=== PATIENT | female | born 1960 | race Caucasian/White ===

== ENCOUNTER 2019-02-07 12:34 | Inpatient (IN) | payer OTHER ==
[~2019-02-07] VITALS: Ht 149.9 cm; Wt 90.7 kg
[~2019-02-07 12:34] MED LIST: ASPI-1718 PO; FLO110 INH; FURO-572 PO; LISI-420 PO; MONT10TA35 PO; SYN.1 PO
[2019-02-07 12:48] VITALS: BP 162/96
--- NOTE | 2019-02-07 13:06 | NUR ---
PT W/C ASSISTED TO BED 3 AT THIS TIME.
--- NOTE | 2019-02-07 13:30 | NUR ---
C/O NON RADIATING LOWER ABD PAIN AROUND [place] 7/10 AND SHARP X4 DAYS ACCOMPANIED BY NAUSEA AND CONSTIPATION. PT STATES SHE WAS SEEN BY HER PCP DR. REESE WEDNESDAY AND WAS TOLD SHE HAS AN UMBILICAL HERNIA, AND ADVISED IF THE PAIN GETS WORSE TO COME TO THE ER. ABD IS ROUND/PUFFY AND TENDER TO PALPATION AROUND UMBILICAL AREA. LBM 02/06/19, CONSTIPATION PER PT. PT STATES "I'M AFRAID TO GO BECAUSE IT HURTS". DENIES VOMITING/FEVER/DYSURIA/DIARRHEA. BED IN LOW POSITION, SIDE RAIL UP X1
--- NOTE | 2019-02-07 13:35 | NUR ---
ERMD AT BEDSIDE
[2019-02-07] MEDS ORDERED: ALBUTEROL 0.083% 2.5 MG/3 ML NEBU INH ONE (14:05)
[2019-02-07] MEDS ORDERED: MORPHINE SULFATE 2 MG/ML SYR IVP ONE (14:05)
[2019-02-07] MEDS ORDERED: IPRATROPIUM 0.02% 0.5 MG/2.5 ML NEBU INH ONE (14:05)
[2019-02-07] MEDS ORDERED: ONDANSETRON 4 MG/2 ML VIAL IVP ONE (14:05)
[2019-02-07] MEDS ORDERED: NACL 0.9% 500 ML IV ONE (14:05)
[2019-02-07 14:23] LABS: BASOPHILS % (AUTO) 0.5 % (0.0-2.0); EOSINOPHILS # (AUTO) 0.4 K/uL (0-0.4); EOSINOPHILS % (AUTO) 7.2 % (0.0-4.0); HEMATOCRIT 29.7 % (36-48); HEMOGLOBIN 9.3 g/dL (12.0-16.0); LYMPHOCYTES # (AUTO) 1.3 K/uL (2.5-16.5); LYMPHOCYTES % (AUTO) 20.9 % (20.5-51.1); MEAN CORPUSCULAR HEMOGLOBIN 29 pg (27-31); MEAN CORPUSCULAR HGB CONC 31 g/dL (33-37); MEAN CORPUSCULAR VOLUME 92.1 fL (80-94); MONOCYTES # (AUTO) 0.5 K/uL (0.8-1.0); MONOCYTES % (AUTO) 7.6 % (1.7-9.3); NEUTROPHILS % (AUTO) 63.8 % (42.2-75.2); PLATELET COUNT (AUTO) 362 K/uL (140-450); RED BLOOD CELL COUNT(AUTO) 3.22 MIL/uL (4.20-5.40); RED CELL DISTRIBUTION WIDTH 15.2 % (11.6-13.7); WHITE BLOOD COUNT (AUTO) 6.2 K/uL (4.8-10.8)
--- NOTE | 2019-02-07 15:12 | NUR ---
PT TAKEN TO CT VIA W/C.
[2019-02-07 15:19] LABS: ALBUMIN 3.2 g/dL (3.4-5.0); CARBON DIOXIDE 39.1 mmol/L (21-32); CREATININE 1.1 mg/dL (0.6-1.3); POTASSIUM 4.1 mmol/L (3.5-5.1); TOTAL BILIRUBIN 0.2 mg/dL (0.0-1.0)
--- NOTE | 2019-02-07 15:23 | NUR ---
Patient is back from CT and placed in bed 3.
[2019-02-07 15:40] LABS: APPEARANCE,URINE CLOUDY (CLEAR); BILIRUBIN,URINE NEGATIVE (NEGATIVE); BLOOD, URINE 3+ (NEGATIVE); COLOR,URINE YELLOW (YELLOW); LEUKOCYTE ESTERASE ,URINE TRACE (NEGATIVE); NITRITE, URINE NEGATIVE (NEGATIVE); PH,URINE 7.5 (5.0-9.0); UGLUCOSE NEGATIVE (NEGATIVE)
[2019-02-07 15:51] LABS: RBC,URINE TOO NUMEROUS TO COUN /HPF (0-5)
--- NOTE | 2019-02-07 16:59 | NUR ---
PT RESTING IN BED WATCHING VIDEOS ON PHONE, GIRLFRIEND AT BEDSIDE
[2019-02-07] MEDS ORDERED: SODIUM PHOSPHATE 118 ML ENEM RC PRN (17:45)
[2019-02-07] MEDS ORDERED: ALUMINUM HYD/MAG/SIMETHICONE 30 ML UDC PO PRN (17:45)
[2019-02-07] MEDS ORDERED: ONDANSETRON 4 MG/2 ML VIAL IVP PRN (17:45)
[2019-02-07] MEDS ORDERED: ALBUTEROL 0.083% 2.5 MG/3 ML NEBU INH PRN (17:45)
[2019-02-07] MEDS ORDERED: DOCUSATE SODIUM 250 MG GELCAP PO PRN (17:45)
[2019-02-07] MEDS ORDERED: MAGNESIUM OXIDE 400 MG TAB PO PRN (17:45)
[2019-02-07] MEDS ORDERED: POTASSIUM CHLORIDE 10 MEQ TABER PO PRN (17:45)
[2019-02-07] MEDS ORDERED: ACETAMINOPHEN 650 MG SUPP RC PRN (17:45)
[2019-02-07] MEDS ORDERED: LORazepam 2 MG/ML VIAL IVP PRN (17:45)
[2019-02-07] MEDS ORDERED: cloNIDine 0.1 MG TAB PO PRN (17:45)
[2019-02-07] MEDS ORDERED: ACETAMINOPHEN 325 MG TAB PO PRN (17:45)
[2019-02-07] MEDS ORDERED: IPRATROPIUM 0.02% 0.5 MG/2.5 ML NEBU INH PRN (17:45)
[2019-02-07] MEDS ORDERED: diphenhydrAMINE 50 MG/ML VIAL IVP PRN (17:45)
[2019-02-07] MEDS ORDERED: ZOLPIDEM 5 MG TAB PO PRN (17:45)
[2019-02-07] MEDS ORDERED: BISACODYL 10 MG SUPP RC PRN (17:45)
[2019-02-07] MEDS ORDERED: guaiFENesin DM 200/20 MG-10 ML 10 ML UDC PO PRN (17:45)
[2019-02-07] MEDS ORDERED: POTASSIUM CHLORIDE 40 MEQ, LIDOCAINE 1% 25 MG in NACL 0.9% 250 ML IV PRN (17:45)
[2019-02-07] MEDS ORDERED: MAG SULF 2000 MG/WATER PREMIX 50 ML IV PRN (17:45)
[2019-02-07 18:20] VITALS: BP 132/70
--- NOTE | 2019-02-07 18:20 | NUR ---
RECEIVED REPORT FROM NATHANIEL RAMON. PT AAOX4. AMBULATED FROM [facility] TO [facility] BED WITH STANDBY ASSISTANCE. PT HAS HX OF HTN, HR 62, BP 132/70. IV ON RT HAND 22 GA ON SALINE LOCK. RESPIRATIONS EVEN AND UNLABORED ON O2 2L VIA N/C. LBM 02/06, ACTIVE BS, SOFT ABD. SKIN IS INTACT, WARM TO TOUCH. EXPLAINED POC WITH PT, PT VERBALIZED UNDERSTANDING.
--- NOTE | 2019-02-07 18:20 | NUR ---
Patient will be admitted to care of DR. MEDLEY. Admited to MED SURG. Will go to room 119-A. Belongings list completed. Report to NATHANIEL RONQUILLO.
[2019-02-07] MEDS: DEXT 5% / NACL 0.45% 1,000 ML IV SCH (18:31)
--- NOTE | 2019-02-07 19:20 | NUR ---
ENDORSED PT TO SUPPLIES PACKER NURSE. PT HAS NO SIGNS OF DISTRESS AT THIS TIME.
--- NOTE | 2019-02-07 19:30 | NUR ---
ADMITTED 58 YEARS OLD FEMALE FROM ER IN UNIT AT 1830. CC: ABDOMINAL PAIN. DX: DIVERTICULITIS AND UMBILICAL HERNIA. SEE NURSING ADMISSION ASSESSMENT AND HISTORY. ORIENTED TO ROOM AND UNIT ROUTINES. PLAN OF CARE DISCUSSED WITH PATIENT, VERBALIZED UNDERSTANDING WELL. CALL LIGHT WITHIN REACH. CARE BOARD STARTED.
--- NOTE | 2019-02-07 21:00 | NUR ---
ADVISED PATIENT NPO AFTERMIDNIGHT, VERBALIZED UNDERSTANDING WELL. FAMILY AT BEDSIDE, BOUGHT FOOD. NO COMPLAINS. CALL LIGHT WITHIN REACH.
[2019-02-07] MEDS ORDERED: MORPHINE SULFATE 4 MG/ML SYR IVP PRN (21:25)
[2019-02-08] VITALS (7 sets, daily range): BP systolic 103–155; BP diastolic 53–94
--- NOTE | 2019-02-08 | NUR ---
NPO NOW FOR SURGERY IN AM. VITAL SIGNS STABLE. NO COMPLAINS. CALL LIGHT WITHIN REACH.
--- NOTE | 2019-02-08 02:00 | NUR ---
ASLEEP. NO COMPLAINS. CALL LIGHT WITHIN REACH.
[2019-02-08] MEDS: MORPHINE SULFATE 2 MG/ML SYR IVP PRN ×2 (04:51→14:21)
--- NOTE | 2019-02-08 05:40 | NUR ---
IV INFILTRATED. NEW IV SITE INSERTED, LEFT HAND #20, TOLERATED WELL. CALL LIGHT WITHIN REACH.
[2019-02-08] MEDS: DEXT 5% / NACL 0.45% 1,000 ML IV SCH ×2 (06:30→17:22)
[2019-02-08 06:34] LABS: BASOPHILS % (AUTO) 0.4 % (0.0-2.0); EOSINOPHILS # (AUTO) 0.4 K/uL (0-0.4); EOSINOPHILS % (AUTO) 7.3 % (0.0-4.0); HEMATOCRIT 27.7 % (36-48); HEMOGLOBIN 8.6 g/dL (12.0-16.0); LYMPHOCYTES # (AUTO) 1.3 K/uL (2.5-16.5); LYMPHOCYTES % (AUTO) 20.8 % (20.5-51.1); MEAN CORPUSCULAR HEMOGLOBIN 29 pg (27-31); MEAN CORPUSCULAR HGB CONC 31 g/dL (33-37); MEAN CORPUSCULAR VOLUME 93.3 fL (80-94); MONOCYTES # (AUTO) 0.5 K/uL (0.8-1.0); MONOCYTES % (AUTO) 8.1 % (1.7-9.3); NEUTROPHILS # (AUTO) 3.9 K/uL (1.8-7.7); NEUTROPHILS % (AUTO) 63.4 % (42.2-75.2); PLATELET COUNT (AUTO) 360 K/uL (140-450); RED BLOOD CELL COUNT(AUTO) 2.97 MIL/uL (4.20-5.40); RED CELL DISTRIBUTION WIDTH 15.1 % (11.6-13.7); WHITE BLOOD COUNT (AUTO) 6.1 K/uL (4.8-10.8)
--- NOTE | 2019-02-08 07:24 | NUR ---
ENDORSED CARE AT BEDSIDE WITH BRIT ARMSTRONG, PATIENT IN STABLE CONDITION.
--- NOTE | 2019-02-08 07:36 | NUR ---
RECEIVED REPORT FROM JEWELRY BEARING MAKER RN. PT IS AAOX4. AMBULATORY WITH STANDBY ASSISTANCE. IV ON LEFT HAND 20G INFUSING D51/2NS AT 85ML/HR. RESPIRATIONS EVEN AND UNLABORED ON O2 2L VIA N/C. LBM 02/06, ACTIVE BS, SOFT NON-TENDER ABD. SKIN IS INTACT, WARM TO TOUCH. EXPLAINED POC WITH PT, PT VERBALIZED UNDERSTANDING. BED IN LOW POSITION, CALL LIGHT WITHIN REACH. WILL ROUND FREQUENTLY ON PT.
[2019-02-08 08:17] LABS: ALBUMIN 2.9 g/dL (3.4-5.0); ANION GAP 7.8 (8-16); CARBON DIOXIDE 37.1 mmol/L (21-32); CREATININE 1.1 mg/dL (0.6-1.3); POTASSIUM 3.9 mmol/L (3.5-5.1); TOTAL BILIRUBIN 0.2 mg/dL (0.0-1.0)
--- NOTE | 2019-02-08 08:21 | NUR ---
PATIENT HAS BEEN SCREENED AND CATEGORIZED MODERATE NUTRITION RISK. PATIENT WILL BE SEEN WITHIN 3-5 DAYS OF ADMISSION. 02/11/[address]
--- NOTE | 2019-02-08 09:24 | NUR ---
PT RESTING IN BED. ALL NEEDS MET. WILL CONTINUE TO ROUND FREQUENTLY ON PT.
--- NOTE | 2019-02-08 11:34 | NUR ---
PT RESTING IN BED WITH GIRLFRIEND AT BEDSIDE. ALL NEEDS MET. WILL CONTINUE TO ROUND FREQUENTLY ON PT.
--- NOTE | 2019-02-08 11:56 | NUR ---
CONTACTED PATIENT'S PCP DR MICHELE REESE AT [phone], ABLE TO SPEAK TO VERONICA. SHE PROVIDED ME WITH FEB 15 AT 2PM. COPY OF APPOINTMENT PROVIDED TO THE PATIENT.
--- NOTE | 2019-02-08 13:47 | NUR ---
PT RESTING IN BED. ALL NEEDS CURRENTLY MET. PT ABLE TO REPOSITION HERSELF. WILL CONTINUE TO ROUND FREQUENTLY ON PT.
--- NOTE | 2019-02-08 14:32 | NUR ---
PT GIVEN PAIN MEDS FOR 6/10 PAIN. WILL REASSESS FOR MED EFFECTIVENESS. ALL OTHER NEEDS MET. WILL CONTINUE TO ROUND CLOSELY ON PT.
--- NOTE | 2019-02-08 15:42 | NUR ---
PT RESTING IN BED WITH FAMILY AT BEDSIDE. WILL [id number] TO ROUND ON PT.
--- NOTE | 2019-02-08 17:46 | NUR ---
PT RESTING IN BED AWAITING HERNIA REPAIR. PT AWARE THAT ONE PT IS AHEAD OF HER. ALL NEEDS MET. WILL CONTINUE TO ROUND FREQUENTLY ON P.
--- NOTE | 2019-02-08 18:48 | NUR ---
PT TAKEN TO OR. PT LEFT IN STABLE CONDITION.
[2019-02-08] MEDS ORDERED: NEOSTIGMINE 1:1000 10 MG/10 ML VIAL ONE (19:30)
[2019-02-08] MEDS ORDERED: ROCURONIUM 50 MG/5 ML VIAL IV ONE (19:30)
[2019-02-08] MEDS ORDERED: PROPOFOL 200 MG/20 ML VIAL IV ONE (19:30)
[2019-02-08] MEDS ORDERED: SEVOFLURANE 250 ML BTL INH ONE (19:30)
[2019-02-08] MEDS ORDERED: GLYCOPYRROLATE 0.2 MG/ML VIAL ONE (19:30)
[2019-02-08] MEDS ORDERED: SUCCINYLCHOLINE CHLORIDE 200 MG/10 ML VIAL IVP ONE (19:30)
--- NOTE | 2019-02-08 19:30 | NUR ---
RECEIVED REPORT FROM SASHA RN . PT. AT THIS TIME NOT ON THE FLOOR BUT IN OR FOR HERNIA REPAIR.
[2019-02-08] MEDS ORDERED: MEPERIDINE 25 MG/ML SYR IVP PRN (19:40)
[2019-02-08] MEDS ORDERED: HYDROmorphone 1 MG/ML AMP IVP PRN (19:40)
[2019-02-08] MEDS ORDERED: diphenhydrAMINE 50 MG/ML VIAL IVP PRN (19:40)
[2019-02-08] MEDS ORDERED: ONDANSETRON 4 MG/2 ML VIAL IVP PRN (19:40)
[2019-02-08] MEDS: LACTATED RINGERS 1,000 ML IV SCH (19:40)
[2019-02-08] MEDS ORDERED: ceFAZolin 1,000 MG VIAL ONE (19:45)
[2019-02-08] MEDS ORDERED: BUPIVACAINE-MPF/EPI 0.25% 30 ML VIAL INJ ONE (19:45)
[2019-02-08] MEDS ORDERED: fentaNYL 0.05 MG/ML VIAL ONE (19:52)
[2019-02-08] MEDS ORDERED: MIDAZOLAM 2 MG/2 ML VIAL ONE (19:52)
[2019-02-08] MEDS ORDERED: MEPERIDINE 50 MG/ML SYR ONE (19:52)
--- NOTE | 2019-02-08 19:52 | NUR ---
ENDORSED PT TO VICE PRESIDENT & GENERAL MANAGER [employer] [place] FOR CONTINUITY OF CARE. PT IN STABLE CONDITION AT THIS TIME. Addendum: 02/08/19 at 4 by Laquita Todd RN PT IN OR AT THIS TIME
--- NOTE | 2019-02-08 20:16 | NUR ---
PATIENT IN OR AT THIS TIME.
--- NOTE | 2019-02-08 21:39 | NUR ---
PT. AT THIS TIME NOT IN HERE YET. FAMILY MEMBER WAITING IN ROOM.
[2019-02-08] MEDS ORDERED: HYDROmorphone PFS 2 MG/ML SYR ONE (21:49)
--- NOTE | 2019-02-08 22:05 | NUR ---
PT. IN HERE TRANSPORTED VIA GURNEY FROM OR AWAKE AND ABLE TO ANSWER SIMPLE QUESTION. DAUGHTER AT BEDSIDE. VITAL SIGNS AT THIS TIME 138/73,56 PULSE AND O2 SAT AT 94 % WITH 4 LPM/MASK. PT. SLEEPY. DILAUDID IVP ADMINISTERED BY OR NURSE AT 2135. ENCOURAGED TO DEEP BREATH WHEN AWAKE. NO BLEEDING TO DRESSING IN PLACE. S/P REPAIR UMBILICAL HERNIA WITH MESH. NO COMPLAINTS AT THIS TIME.
--- NOTE | 2019-02-08 22:15 | NUR ---
PT. AT THIS TIME WITH HOB UP 30 DEGREES ORDERED.
--- NOTE | 2019-02-08 23:04 | NUR ---
PT. AT THIS TIME AWAKE AND VERBALIZING WELL. REQUESTED TO CHANGE 02 PER MASK TO NASAL CANNULA. PLACED 02 AT 3LPM/NC AT THIS TIME REQUESTED BY DAUGHTER AND PT. 02 SAT 93 %.
--- NOTE | 2019-02-09 00:36 | NUR ---
PT. BEEN SLEEPING AND DAUGHTER AT BEDSIDE. PLACED BACK ON MASK 4LPM/RT PT. DE-SATING TO LESS THAN 90 WHILE SLEEPING. LATEST BP NOW 119/62 WITH 02 SAT OF 94 % . ENCOURAGED DAUGHTER TO LET ME KNOW IF SHE DE-SAT LESS THAN 92. "OK"
[2019-02-09 01:05] VITALS: BP 119/62
--- NOTE | 2019-02-09 03:30 | NUR ---
SLEEPING WELL . NO RESTLESSNESS. VITAL SIGNS WITH IN NORMAL LIMITS AND O2 SAT RANGING FROM 92 TO 96 % WITH 02 AT 4LPM/MASK. DAUGHTER LEFT EARLIER FOR HOME. IVF SITE INTACT AND NO INFILTRATION.
[2019-02-09 04:00] VITALS: BP 130/71
[2019-02-09] MEDS: LACTATED RINGERS 1,000 ML IV SCH ×2 (04:00→11:13)
[2019-02-09] MEDS: DEXT 5% / NACL 0.45% 1,000 ML IV SCH ×2 (05:08→09:00)
--- NOTE | 2019-02-09 05:42 | NUR ---
PT. AM PERSONAL HYGIENE RENDERED. NO COMPLAINTS DONE. VITAL SIGNS AT THIS TIME WNL. 02 SAT AT 94 % ON 02 AT 4LPM/MASK. SBP 130/71. SLEEPING. NO RESTLESSNESS NOTED. NO COMPLAINTS DONE. NO NOTED BLEEDING TO SURGICAL SITE/HERNIA REPAIR UMBILICAL.
[2019-02-09 06:33] LABS: BASOPHILS % (AUTO) 0.3 % (0.0-2.0); EOSINOPHILS # (AUTO) 0.2 K/uL (0-0.4); EOSINOPHILS % (AUTO) 2.9 % (0.0-4.0); HEMATOCRIT 26.5 % (36-48); HEMOGLOBIN 8.5 g/dL (12.0-16.0); LYMPHOCYTES # (AUTO) 1.3 K/uL (2.5-16.5); LYMPHOCYTES % (AUTO) 18.4 % (20.5-51.1); MEAN CORPUSCULAR HEMOGLOBIN 29 pg (27-31); MEAN CORPUSCULAR HGB CONC 32 g/dL (33-37); MEAN CORPUSCULAR VOLUME 91.6 fL (80-94); MONOCYTES # (AUTO) 0.5 K/uL (0.8-1.0); MONOCYTES % (AUTO) 6.9 % (1.7-9.3); NEUTROPHILS # (AUTO) 5.2 K/uL (1.8-7.7); NEUTROPHILS % (AUTO) 71.5 % (42.2-75.2); PLATELET COUNT (AUTO) 364 K/uL (140-450); RED CELL DISTRIBUTION WIDTH 15.1 % (11.6-13.7); WHITE BLOOD COUNT (AUTO) 7.3 K/uL (4.8-10.8)
--- NOTE | 2019-02-09 06:39 | NUR ---
PT. ABLE TO WALK TO RESTROOM TO URINATE WITH STANDBY ASSIST BY OCCUPATIONAL THERAPY ASSISTANT. NO COMPLAINTS DONE. CALL LIGHT WITH IN REACH.
[2019-02-09 06:58] LABS: ALBUMIN 2.8 g/dL (3.4-5.0); ANION GAP 6.6 (8-16); CARBON DIOXIDE 35.5 mmol/L (21-32); POTASSIUM 4.1 mmol/L (3.5-5.1); TOTAL BILIRUBIN 0.3 mg/dL (0.0-1.0)
--- NOTE | 2019-02-09 07:26 | NUR ---
ENDORSED TO THE NEXT RN FOR CONTINUITY OF CARE. WAKES UP WHEN CALLED BY NAME OR TOUCHED. NO COMPLAINTS DONE.
--- NOTE | 2019-02-09 07:27 | NUR ---
RECEIVED ENDORSEMENT FROM GASTROENTEROLOGY PROFESSOR NURSE. PATIENT IS AAOX4, [place] SPEAKING. RESPIRATIONS ARE EVEN AND UNLABORED ON 4L SIMPLE FACE MASK. PATIENT DENIES ANY PAIN AT THIS TIME. LEFT HAND 20G IV INTACT, PATENT, AND INFUSING IVF. PLAN OF CARE WAS REVIEWED WITH PATIENT, PATIENT VERBALIZED UNDERSTANDING. SAFETY MEASURES IN PLACE, CALL LIGHT WITHIN REACH.
[2019-02-09 08:00] VITALS: BP 168/85
--- NOTE | 2019-02-09 09:00 | NUR ---
ADMINISTERED CLONIDINE PRN FOR BP 168/85 P 64. PATIENT TOLERATED WELL. NO OTHER NEEDS AT THIS TIME, WILL CONTINUE TO MONITOR.
[2019-02-09] MEDS: MORPHINE SULFATE 2 MG/ML SYR IVP PRN (10:42)
--- NOTE | 2019-02-09 11:05 | NUR ---
ASSISTED PATIENT TO RESTROOM. PATIENT AMBULATED WITH STEADY GAIT. NO OTHER NEEDS AT THIS TIME. WILL CONTINUE TO MONITOR.
--- NOTE | 2019-02-09 13:32 | NUR ---
ADMINISTERED SCHEDULED MEDICATION. PATIENT TOLERATED WELL. NO OTHER NEEDS AT THIS TIME. WILL CONTINUE TO MONITOR.
--- NOTE | 2019-02-09 15:20 | NUR ---
PATIENT SLEEPING. VISIBLE RISE AND FALL OF CHEST. NO COMPLAINTS OF PAIN AT THIS TIME. NO OTHER NEEDS AT THIS TIME, WILL CONTINUE TO MONITOR.
[2019-02-09 16:00] VITALS: BP 159/88
--- NOTE | 2019-02-09 17:26 | NUR ---
PATIENT SITTING IN BED. DENIES ANY PAIN. NO OTHER NEEDS AT THIS TIME, WILL CONTINUE TO MONITOR.
--- NOTE | 2019-02-09 18:32 | NUR ---
DISCHARGE INSTRUCTIONS PROVIDED. ANSWERED ALL PATIENTS QUESTIONS AND CONCERNS. IV WAS REMOVED, CANNULA INTACT WITH MINIMAL BLEEDING. ID BAND WAS REMOVED. PRESCRIPTION WAS GIVEN AND INSTRUCTIONS TO MAKE AN APPT WITH DR. BAILEY PROVIDED. PATIENT TO BE DISCHARGED HOME. FAMILY MEMBER PROVIDED WHEELCHAIR TO TAKE PATIENT. PATIENT IS STABLE AT THIS TIME.
--- NOTE | 2019-02-09 18:40 | NUR ---
PATIENT WHEELED OFF UNIT BY FAMILY MEMBER. ALL BELONGINGS LEFT WITH PATIENT. PATIENT IS STABLE AT THIS TIME.
[2019-02-10] MEDS ORDERED: ENOXAPARIN 40 MG/0.4 ML SYR SUBQ SCH (09:00)
== END 2019-02-09 18:40 | disposition home or self-care (01) | DRG 228 ==
LOC: MED 12:34 → MTU 17:36
PROVIDERS: ADMIT Internal Medicine Pulmonary Disease; ATTEND Internal Medicine Pulmonary Disease
PROC: 0WUF0JZ Supplement Abdominal Wall with Synthetic Substitute, Open Approach (ICD-10-PCS; principal; 2019-02-08 18:55)
DX: K42.0 Umbilical hernia with obstruction, without gangrene (principal); E66.01 Morbid (severe) obesity due to excess calories; E03.9 Hypothyroidism, unspecified; F17.210 Nicotine dependence, cigarettes, uncomplicated; Z68.41 Body mass index [BMI] 40.0-44.9, adult; J44.1 Chronic obstructive pulmonary disease with (acute) exacerbation; D64.9 Anemia, unspecified; G40.909 Epilepsy, unspecified, not intractable, without status epilepticus; I10 Essential (primary) hypertension; K57.90 Diverticulosis of intestine, part unspecified, without perforation or abscess without bleeding; Z88.5 Allergy status to narcotic agent; Z88.8 Allergy status to other drugs, medicaments and biological substances
CPT/HCPCS: 36415; 71045; 80053; 81001; 83690; 85025; 85610; 85730; 86886; 86900; 86901; 87081; 87086; 93005; 94640; 96361; 96374; 96375; 99285; C1781; J0330; J0690; J1170; J2175; J2250; J2270; J2405; J2704; J2710; J3010; J3490; J7030; J7042; J7060; J7120; J7613; J7644; Q0092

== ENCOUNTER 2020-03-23 00:32 | Emergency (ER) | payer OTHER ==
[~2020-03-23] VITALS: Ht 149.9 cm; Wt 81.6 kg
[~2020-03-23 00:32] MED LIST changes: -ASPI-1718 PO; +ASPI-1822 PO
[2020-03-23 00:42] VITALS: BP 100/78
--- NOTE | 2020-03-23 00:48 | NUR ---
PT TAKEN TO BED 01 VIA WHEELCHAIR. CAREGIVER AT BEDSIDE.
--- NOTE | 2020-03-23 01:08 | NUR ---
59 year old female coming in for c/o multiple abscess on b/l axilla region. reports started x 1 month and has progressively gotten worse. reports 8/10 pain. denies any other s/sx. denies injury or trauma. pt is wheelchair bound. awaiting MSE. pmhx: HTN, hypothyroid, refer to triage
--- NOTE | 2020-03-23 01:27 | NUR ---
ERMD AT BEDSIDE EVALUATING PT
[2020-03-23 01:49] VITALS: BP 137/67
--- NOTE | 2020-03-23 01:49 | NUR ---
Patient discharged with v/s stable. Written and verbal after care instructions given and explained. Patient alert, oriented and verbalized understanding of instructions. Wheel Chair Assisted with to car. All questions addressed prior to discharge. ID band removed. Patient advised to follow up with PMD. Rx of BACTRIM AND MOTRIN given. Patient educated on indication of medication including possible reaction and side effects. Opportunity to ask questions provided and answered.
== END 2020-03-23 01:49 | disposition home or self-care (01) ==
LOC: MED 00:32
DX: L02.412 Cutaneous abscess of left axilla (principal); L03.112 Cellulitis of left axilla; L03.111 Cellulitis of right axilla; E07.9 Disorder of thyroid, unspecified; F17.210 Nicotine dependence, cigarettes, uncomplicated; J44.9 Chronic obstructive pulmonary disease, unspecified; R56.9 Unspecified convulsions; Z88.8 Allergy status to other drugs, medicaments and biological substances; Z88.5 Allergy status to narcotic agent; Z79.899 Other long term (current) drug therapy; Z98.890 Other specified postprocedural states; Z88.0 Allergy status to penicillin; Z53.31 Laparoscopic surgical procedure converted to open procedure
CPT/HCPCS: 99283